=== PATIENT | male | born 1970 | race Caucasian/White ===

== ENCOUNTER 2020-05-24 14:21 | Emergency (ER) | payer BC, SELFPAY ==
--- NOTE | ~2020-05-24 | CT_ITS ---
EXAMINATION: CT abdomen pelvis w con DATE: 05/24/2020 15:59 INDICATION: Left lower quadrant abdominal pain TECHNIQUE: Computed tomography (CT) of the abdomen and pelvis was performed with 100 mL Omnipaque-350 intravenous contrast. Automated exposure control and iterative reconstruction technique were employe d. The dose-length product was 881.18 mGy-cm. COMPARISON: 04/12/2017 FINDINGS: Mild discoid atelectasis in the bilateral lower lobes, lingula and right middle lobe. Heart size is n ormal. No pericardial or pleural effusion. There are 3 low-attenuation hepatic cysts the largest uvaldo uring 1.6 cm. Additional 1.9 cm low-attenuation lesion of higher than simple fluid attenuation with s uggestion of some peripheral puddling of contrast located in segment 6 of the liver which is subtly e vident on the prior CT from 3 years be most consistent with a hemangioma. 4 cm mass with with small r egion of peripheral enhancement which is situated between the medial margin of segment 6 of the liver and the otherwise normal right adrenal gland. The mass is present on CT dated 03/01/2012 at which umair e it measured approximately 3.2 cm. The chronicity of the mass suggests a benign etiology most likely an additional pelvic hemangioma or less likely adrenal adenoma. Spleen, pancreas, left adrenal gland and bilateral kidneys are normal. There are few scattered colonic diverticula without adjacent infla mmatory change to suggest diverticulitis. Small bowel and appendix are normal. Bladder is normal. Mil d prostatomegaly. No free intraperitoneal gas or fluid. No pathologically enlarged abdominal or pelvi c lymphadenopathy. Anterior spinal fusion with anterior plate and screw fixation at L5-S1. Unchanged sclerotic bone islands at the right ilium and left sacral ala. IMPRESSION: 1. No acute intra-abdominal/pelvic process. Reviewed, dictated and finalized at location A.
[2020-05-24 14:24] VITALS: BP 132/87; PULSE 86; RESP 18; TEMP 36.1; O2SAT 99
--- NOTE | 2020-05-24 14:32 | ED.ABDPAIN ---
HPI - Abdominal Pain General Chief Complaint: Abdominal Pain Stated Complaint: Possible Hernia Time Seen by Provider: 05/24/20 14:24 History of Present Illness HPI narrative: 50 yo male presents to the ED for LLQ pain. He began having pain in the left hip a few days ago. Which then spread into the LLQ. He talked to his PCP who was concerned that he may have a hernia. He has tried ibuprofen without relief. Related Data Allergies Allergy/AdvReac Type Severity Reaction Status Date / Time No Known Allergies Allergy Unverified 07/05/18 18:23 Review of Systems Review of Systems: All systems reviewed & are unremarkable except as noted in HPI and below Constitutional: Constitutional: Denies chills and Denies fever(s) Cardiovascular: Cardiovascular: Denies chest pain Respiratory: Respiratory: Denies dyspnea Gastrointestinal: Gastrointestinal: Reports abdominal pain, Denies constipation, Denies diarrhea, Reports nausea and Denies vomiting Genitourinary: Genitourinary: Denies hematuria and Denies dysuria Musculoskeletal: Musculoskeletal: Reports back pain Neurologic: Denies dizziness [facility] Family History Family History Father Family history of lung cancer Mother Family history of dementia Exam Const: General: healthy appearing, no acute distress and alert Orientation/consciousness: patient oriented x3 HENMT: Head: normal to inspection Neck: Neck: normal visual inspection and no lymphadenopathy Chest: Chest palpation & inspection: no tenderness Resp: Effort & Inspection: normal respiratory effort Auscultation: clear to auscultation bilaterally, no rales, no rhonchi and no wheezes Cardio: Jugular venous distension: no JVD Rate: regular rate Rhythm: regular rhythm Heart sounds: no murmurs GI: Inspection: non-distended GI Palp: Yes Soft to palpation and Yes Tenderness to palpation present (GI) (LLQ and over inguinal ligament) Skin: General skin exam: normal color Neuro: General: patient oriented x3, moves all extremities and CN's II-XI intact bilaterally Speech: normal speech Extrem: General: no edema Psych: Appearance: well kempt Affect: normal affect Course Vital Signs Vital signs: Vital Signs Temperature 36.1 C L 05/24/20 14:24 Pulse Rate 86 05/24/20 14:24 Respiratory Rate 18 05/24/20 14:24 Blood Pressure 132/87 05/24/20 14:24 Pulse Oximetry 99 05/24/20 14:24 Temperature 36.1 C L 05/24/20 14:24 Pulse Rate 87 05/24/20 15:00 Respiratory Rate 18 05/24/20 15:00 Blood Pressure 134/86 05/24/20 15:00 Pulse Oximetry 100 05/24/20 15:00 MDM - Abdominal Pain Differential Diagnosis Differential diagnosis: Likely calculus of kidney, constipation, diverticulitis, pancreatitis and other (inguinal hernia, hip pain) Medical Records Attestation: I reviewed the patient's medical records. Lab Data Attestation: I reviewed the patient's lab results. Result diagrams: 05/24/20 14:54 05/24/20 14:54 Labs: Lab Results 05/24/20 05/24/20 05/24/20 Range/Units 14:54 14:54 14:54 WBC 9.6 (4.5-10.0) K/mm3 RBC 5.33 (4.6-6.20) M/mm3 Hgb 15.9 (14.0-18.0) g/dL Hct 46.8 (42.0-52.0) % MCV 87.8 (80-100) fl MCH 29.8 (26-34) pg MCHC 34.0 (32-36) g/dl RDW 13.6 (11.5-14.5) % Plt Count 325 (150-375) k/mm3 MPV 10.5 H (7.4-10.4) fl Immature Gran % (Auto) 0.5 (0-0.5) % Neut % (Auto) 68.7 (45.5-73.1) % Lymph % (Auto) 17.7 L (18.3-44.2) % Hyde % (Auto) 9.7 H (2.6-8.5) % Eos % (Auto) 3.0 (0-4.4) % Baso % (Auto) 0.4 (0.2-1.2) % Lymph # (Auto) 1.70 (0.9-3.2) K/mm3 Hyde # (Auto) 0.9 H (0.1-0.6) K/mm3 Eos # (Auto) 0.3 (0-0.3) K/mm3 Baso # (Auto) 0.0 (0.0-0.1) K/mm3 Abs Immat Gran (auto) 0.05 H (0.00-0.031) K/mm3 Absolute Neuts (auto) 6.6 (1.3-6.7) K/mm3 Absolute Nucleated RBC 0.0 (0.0-0.012) K/mm3
[2020-05-24 15:00] VITALS: BP 134/86; PULSE 87; RESP 18; O2SAT 100
[2020-05-24 15:01] LABS: Basophils Percent Auto 0.4 % (0.2-1.2); Eosinophils Absolute Auto 0.3 K/mm3 (0-0.3); Hematocrit 46.8 % (42.0-52.0); Hemoglobin 15.9 g/dL (14.0-18.0); Immature Granulocyte Absolute 0.05 K/mm3 (0.00-0.031); Immature Granulocyte Percent A 0.5 % (0-0.5); Lymphocytes Percent Auto 17.7 % (18.3-44.2); Mean Corpuscular Hemoglobin 29.8 pg (26-34); Mean Corpuscular Volume 87.8 fl (80-100); Mean Platelet Volume 10.5 fl (7.4-10.4); Monocytes Absolute Auto 0.9 K/mm3 (0.1-0.6); Monocytes Percent Auto 9.7 % (2.6-8.5); Neutrophils Absolute Auto 6.6 K/mm3 (1.3-6.7); Neutrophils Percent Auto 68.7 % (45.5-73.1); Platelet Count Result 325 k/mm3 (150-375); Red Blood Count 5.33 M/mm3 (4.6-6.20); Red Cell Distribution Width 13.6 % (11.5-14.5); White Blood Count 9.6 K/mm3 (4.5-10.0)
[2020-05-24 15:04] LABS: Add Urine Microscopic? NO; Appearance Urine Clear (Clear); Bilirubin Urine Negative (Negative); Blood Urine Negative (Negative); Color Urine Yellow (Yellow); Glucose Urine UA Negative (Negative); Ketones Urine Negative (Negative); Leukocyte Esterase Ur Negative LEU/UL (Negative); Nitrate Urine Negative (Negative); Protein Urine Negative (Negative); Specific Grav Ur 1.016 (1.001-1.035); Urobilinogen Urine Negative mg/dL (<2.0)
[2020-05-24 15:13] LABS: Alanine Aminotransferase 27 U/L (4-50); Albumin Level 4.4 g/dL (3.5-5.1); Alkaline Phosphatase 75 U/L (38-126); Anion Gap 8 mmol/L (8-16); Aspartate Amino Transferase 19 U/L (17-59); Bilirubin,Total 0.6 mg/dL (0.2-1.3); Blood Urea Nitrogen 11 mg/dL (9-20); Calcium 9.5 mg/dL (8.4-10.2); Carbon Dioxide 29 mmol/L (22-30); Chloride 104 mmol/L (98-107); Estimated CRCL calculation 86 ml/min; Estimated Glomerular Filt Rate > 60; Glucose 89 mg/dL (75-110); Lipase 45 U/L (23-300); Potassium 3.8 mmol/L (3.4-5.0); Sodium 141 mmol/L (137-145)
== END 2020-05-24 16:58 | disposition home or self-care (01) ==
PROVIDERS: Emergency Provider Emergency Medicine; PCP Internal Medicine
DX: M25.552 Pain in left hip (principal)
CPT/HCPCS: 36415; 74177; 80053; 81003; 83690; 85025; 99284; Q9967

== ENCOUNTER 2020-11-18 17:15 | Emergency (ER) | payer OTHER, SELFPAY ==
--- NOTE | 2020-11-18 17:17 | ED.GENADULT ---
HPI - General Adult General Chief complaint: Upper Respiratory Infection Stated complaint: body aches/chills/starr/runny nose/cough Time Seen by Provider: 11/18/20 17:17 Source: patient Mode of arrival: ambulatory Limitations: no limitations History of Present Illness HPI narrative: 50-year-old male patient presents to the [facility] with complaints of upper respiratory infection symptoms for the past 5 days. Patient states it started off with stomach upset and diarrhea on Wednesday. Patient states that has passed but has since had joint pain, body aches, head congestion, headache, runny nose, stuffy nose and a slight cough. Patient states he has been taking [id number] NyQuil for symptoms. Patient states he has not received a Covid vaccine but has received a flu shot this season. Denies any chest pain or shortness of breath. Related Data Allergies Allergy/AdvReac Type Severity Reaction Status Date / Time No Known Allergies Allergy Unverified 07/05/18 18:23 Review of Systems Review of Systems: Narrative: CONSTITUTIONAL: Denies fever, chills, or sweats. Positive body aches EYES: Denies visual changes, redness, or discharge. ENT: Positive rhinorrhea, congestion, sore throat, denies otalgia. CARDIOVASCULAR: Denies chest pain, palpitations, or edema. RESPIRATORY: Positive cough, denies dyspnea. GASTROINTESTINAL: Denies abdominal pain, nausea, vomiting, or diarrhea. GENITOURINARY: Denies dysuria or hematuria. SKIN: Denies rash or itching. MUSCULOSKELETAL: Denies back pain, joint pain, or myalgia. NEUROLOGIC: Positive headache, denies numbness, or weakness. PSYCHIATRIC: Denies anxiety or depression. [facility] Past Medical History Medical History (Updated 11/18/20 @ 17:50 by ARNIE Kent) GI bleed Herniated disc L5-S1 Surgical History Surgical History (Updated 11/18/20 @ 17:20 by ARNIE Kent) H/O Spinal surgery 2013 lumbar fusion History of orthopedic surgery Left rotator cuff surgery 2009, right rotator cuff surgery 2018 History of tonsillectomy Family History Family History Father Family history of lung cancer Mother Family history of dementia Comments At the time of my signature I agree with nursing past medical history, surgical, social, and family history. There is no relevant family history pertinent to the presenting complaint. Exam Narrative: Exam Narrative: GENERAL: Well-appearing, well-nourished, and in no acute distress. HEAD: Normocephalic, atraumatic. EYES: PERRLA and EOMI. ENT: Nares clear, no rhinorrhea or epistaxis. Mucous membranes moist. Posterior pharynx with no erythema, tonsillar Pura, exudates or lesions present. Bilateral TMs are clear with no erythema or foreign bodies to the canal. NECK: Supple. No lymphadenopathy CHEST: Clear to auscultation. No respiratory distress. Patient able talk in clear complete sentences. No tripoding noted. HEART: Regular rate and rhythm. No murmur heard. Normal peripheral pulses. ABDOMEN: Soft, nontender, nondistended, normal active bowel sounds. EXTREMITIES: Normal range of motion. No edema. SKIN: Warm, dry, no rash. NEURO: No focal deficits. Alert and oriented x3. Course Reevaluation(s) Reevaluation #1: Reevaluated patient and notified him that his rapid Covid test is negative and his influenza test is also negative today. We will go ahead and do a PCR test on him and send it off to the lab. Discussed with patient he should needs to remain isolated and not go to work until he has received his PCR test results. Discussed with him he can use [id number] medications for his symptoms including dyaq-nes-wxflhrx cough medication, antihistamines, Tylenol, ibuprofen and get plenty of rest and increase his fluids. Patient verbalized understanding denies any other questions or concerns at this time. Date: 11/18/20 Time: 17:52 Vital Signs Vital signs: Vital Signs Temperature 36
[2020-11-18 17:35] VITALS: BP 141/77; PULSE 90; RESP 16; TEMP 36.8; O2SAT 100
[2020-11-20 00:53] LABS: SARS-CoV-2 RNA PCR Positive
== END 2020-11-18 17:55 | disposition home or self-care (01) ==
PROVIDERS: Emergency Provider Nurse Practitioner Family; PCP Internal Medicine
DX: U07.1 COVID-19 (principal)
CPT/HCPCS: 87426; 87804; 99213; C9803; G0463; U0003; U0005

== ENCOUNTER 2023-02-14 11:51 | Emergency (ER) | payer OTHER, SELFPAY ==
--- NOTE | ~2023-02-14 | XR_ITS ---
XR knee LT min 4V DATE: 02/14/2023 12:50 INDICATION: Left knee pain for one day TECHNIQUE: 4 views COMPARISON: None FINDINGS: Chronic infrapatellar bony ossicles and prominent patellar enthesopathy at the quadriceps a nd patellar tendon insertion sites. Joint spaces are well preserved. No fracture or dislocation or joint effusion. No radiopaque intra-articular loose body or chondrocalc inosis is detected. No periosteal reaction or bone destruction. IMPRESSION: Prominent patellar enthesopathy at quadriceps and patellar tendon insertions Reviewed, dictated and finalized at location A. IMPRESSION: Prominent patellar enthesopathy at quadriceps and patellar tendon i nsertions
[2023-02-14 12:02] VITALS: BP 127/83; PULSE 81; RESP 16; TEMP 36.7; O2SAT 99
--- NOTE | 2023-02-14 12:30 | ED.LOWEXIN ---
HPI - Extremity Injury (Lower) General Chief Complaint: Extremity Injury, Lower Stated Complaint: left knee pain Time Seen by Provider: 02/14/23 12:30 Source: patient Mode of arrival: ambulatory Limitations: no limitations History of Present Illness HPI Narrative: 52 y/o male presented for c/o left knee pain since yesterday. States pain started after kneeling on both knees, he attempted to stand up on the left leg when he felt a sharp pain and pop in the knee. Pain is just below and lateral to the patella. Pain has been constant, described as burning, pressure and ache. Worse with any weight bearing or movement. Feels like it will give out when walking. Reports mild swelling. Cannot tolerate full extension of the leg. Denies numbness, tingling or weakness of the extremity. Wearing knee brace, applying Voltaren, and taking Motrin without relief. Related Data Home Medications Medication Instructions Recorded Confirmed famotidine 20 mg tablet 20 mg PO DAILY 02/14/23 02/14/23 furosemide 20 mg tablet 20 mg PO DAILY 02/14/23 02/14/23 omeprazole 40 mg capsule,delayed 40 mg PO DAILY 02/14/23 02/14/23 release rosuvastatin 10 mg tablet 10 mg PO DAILY 02/14/23 02/14/23 trazodone 50 mg tablet 50 mg PO DAILY 02/14/23 02/14/23 Allergies Allergy/AdvReac Type Severity Reaction Status Date / Time No Known Allergies Allergy Unverified 02/14/23 12:05 Review of Systems Review of Systems: CONSTITUTIONAL: Denies body aches, fever, chills EYES: Denies visual changes ENT: Denies rhinorrhea, congestion CARDIOVASCULAR: Denies chest pain, palpitations, or edema. RESPIRATORY: Denies cough or dyspnea. GASTROINTESTINAL: Denies abdominal pain, nausea, vomiting, or diarrhea. SKIN: Denies rash, itching, or wounds. MUSCULOSKELETAL: Per HPI NEUROLOGIC: Denies headache, numbness, tingling, or weakness. All systems reviewed & are unremarkable except as noted in HPI and below PMFSH Past Medical History Medical History GI bleed Herniated disc L5-S1 Surgical History Surgical History H/O Spinal surgery 2013 lumbar fusion History of orthopedic surgery Left rotator cuff surgery 2009, right rotator cuff surgery 2018 History of tonsillectomy Family History Family History Father Family history of lung cancer Mother Family history of dementia Comments At time of signature, I have reviewed and agree with nursing past medical, surgical, social and family history unless otherwise noted. Please see nursing chart for further information. There is no relevant family history pertinent to the presenting complaint Exam Narrative: GENERAL: Appears in pain, no acute distress. HEAD: Normocephalic, atraumatic. CHEST: Speaks in full sentences. No respiratory distress. HEART: Regular rate and rhythm. Normal and equal peripheral pulses. EXTREMITIES: LLE with Decreased range of motion at knee due to pain with any movement. Cannot tolerate extension. Extreme tenderness with palpation over distal patella. Mild left knee swelling. Normal strength and sensation, No ecchymosis, No open wounds, or obvious deformity; alignment normal, pulse palpable and equal bilaterally, skin warm, dry, pink. Capillary refill less than 3 seconds. Unsteady gait, unable to bear weight. SKIN: Warm, dry, no rash. NEURO: Alert and oriented x3. PSYCH: Normal mood and affect Extrem: Knee images: 1. Location of left knee pain and swelling Course Course Emergency Course: Patient is aware of diagnosis, understands and agrees to treatment plan. Anticipatory guidance given. Patient agrees to follow-up as directed and is aware of reasons to seek care at the emergency department. Portions of this record may have been created with voice recognition software Level of Care: Express Care Visit Vital S
== END 2023-02-14 13:45 | disposition home or self-care (01) ==
PROVIDERS: Emergency Provider Nurse Practitioner Family; PCP Family Medicine Sports Medicine
DX: M25.562 Pain in left knee (principal)
CPT/HCPCS: 73564; 99213; G0463